=== PATIENT | male | born 1990 | race Two or more races ===

== ENCOUNTER 2025-02-28 16:38 | Emergency (ER) | payer MEDICAID, SELFPAY ==
[2025-02-28 16:46] VITALS: BP 124/83; PULSE 66; RESP 18; TEMP 36.7; O2SAT 96; BMI 23.6
--- NOTE | 2025-02-28 16:50 | XR_ITS ---
Examination: Wrist, left 3 views Technique: Wrist AP, oblique, lateral 3 views Date and time of exam: February 28, 2025 1705 hours INDICATIONS: Patient fell backwards today with injury to the wrist, wrist pain. FINDINGS: No acute wrist fracture No wrist dislocation No foreign body IMPRESSION: No acute wrist fracture. Please see the hand report
--- NOTE | 2025-02-28 16:50 | XR_ITS ---
Examination: Hand, left 3 views Technique: Hand AP, oblique, lateral 3 views Date and time of exam: February 28, 2025 1705 hours INDICATIONS: Patient fell today with injury to the hand, hand pain. FINDINGS: No acute fracture On the AP view minimal offset at the first metacarpophalangeal joint No fracture IMPRESSION: Suspicious for mild subluxation at the first metacarpophalangeal joint, the appearance should be clinically correlated
--- NOTE | 2025-02-28 17:53 | EDNOTE_ITS ---
Upper Extremity Injury RME/HPI General Chief Complaint: Hand/Wrist Problems Stated Complaint: Fall, left hand injury today Time Seen by Provider: 02/28/25 16:50 Arrival date/time: 02/28/25 16:38 34-year-old male with no significant medical problems presents to the emergency department today for complaints of pain to the left hand after a fall today patient reports pain is mostly over the left thumb at the base of the left thumb Limitations: no limitations Related Data Previous Rx's ?Medication ?Instructions ?Recorded naproxen 500 mg tablet (Naprosyn) 500 mg PO BID PRN pa in #30 tabs 01/06/22 albuterol sulfate 90 mcg/actuation 2 puff inhalation Q ID PRN 01/24/22 aerosol inhaler shortness of breath or wheez ing #8.5 grams azithromycin 250 mg tablet See Rx Instructions PO .COM PLEX #6 01/24/22 tabs hydrocodone 5 mg-acetaminophen 325 1 tab PO BID PRN pa in #10 tabs 05/27/22 mg tablet ibuprofen 600 mg tablet 600 mg PO Q8H PRN pain #20 t abs 05/27/22 pantoprazole 20 mg tablet,delayed 20 mg PO QDAY #20 ta bs 02/28/23 release (Protonix) cyclobenzaprine 10 mg tablet 10 mg PO BID #14 tabs meloxicam 7.5 mg tablet 7.5 mg PO QDAY #10 tabs 03/22 12/12 ibuprofen 600 mg tablet 600 mg PO QID PRN pain #20 t abs 07/24/23 albuterol sulfate 90 mcg/actuation 2 inh inhalation QI D PRN shortness 03/09/24 aerosol inhaler of breath or wheezing #8.5 g naveed acetaminophen 500 mg capsule 1,000 mg (2 x 500 mg) PO Q6H PRN 05/01/24 fever or pain #30 caps albuterol sulfate 90 mcg/actuation 2 puff inhalation Q 4H PRN 05/01/24 aerosol inhaler shortness of breath #8.5 gra ms ibuprofen 600 mg tablet 600 mg PO Q8H PRN fever or p ain 05/01/24 #30 tabs ibuprofen 600 mg tablet 600 mg PO Q6H #30 tabs 02/28 Allergies Allergy/AdvReac Type Severity Reaction Status Date / Time No Known Allergies Allergy Verified 02/28/25 16:42 Review of Systems Review of Systems Systems Reviewed: All systems reviewed, normal except as documented Constitutional Constitutional: Reports system reviewed and no additional complaints, except as documented, Denies fever(s) and Denies headache(s) Eyes Eyes: Reports system reviewed and no additional complaints, except as documented and Denies blurry vision ENT Ears, Nose, Mouth, and Throat: Reports system reviewed and no additional complaints, except as documented, Denies headache(s), Denies nasal congestion and Denies nasal discharge Cardiovascular Cardiovascular: Reports system reviewed and no additional complaints, except as documented, Denies chest pain and Denies dyspnea Respiratory Respiratory: Reports system reviewed and no additional complaints, except as documented, Denies chest congestion, Denies cough and Denies dyspnea Gastrointestinal Gastrointestinal: Reports system reviewed and no additional complaints, except as documented and Denies abdominal pain Musculoskeletal Musculoskeletal: Reports system reviewed and no additional complaints, except as documented, Reports arthralgias, Denies deformity and Denies joint swelling Integumentary/Breasts Skin/Breast: Reports system reviewed and no additional complaints, except as documented and Denies rash Neurologic Neurologic: Reports system reviewed and no additional complaints, except as d ocumented, Reports as per HPI and Denies headache(s) Past Medical History Past Medical History CARDIAC: Negative Congestive Heart Failure RESPIRATORY: Positive Asthma; Negative Chronic Obstructive Pulmonary Disease (COPD) GASTROINTESTINAL: Positive Hiatal Hernia GENITOURINARY: Negative Renal Disease or Kidney Stones ENDOCRINE: Negative Diabetes Mellitus Type 1 or Diabetes Mellitus Type 2 Surgical History SURGICAL: Positive Abdominal Surgery Social History SMOKING STATUS: Never smoker SUBSTANCE USE: does not use ED Exam General Limitations: Present no limitations General appearance: Present alert and in no apparent distress Head Head exam: Present atraumatic Eye Eye exam: Present normal appearance, PERRL and EOMI ENT ENT exam: Present normal exam, normal oropharynx and mucous membranes moist Neck Neck exam: Present normal inspection, full ROM and trachea midline Chest Chest inspection: Present normal inspection and symmetric chest wall rise Respiratory Respiratory exam: Present normal lung sounds bilaterally Cardiovascular Cardiovascular exam: Present regular rate, normal rhythm and normal heart sounds Abdominal Exam Abdominal exam: Present soft and normal bowel sounds Extremities Exam Extremities exam: Present tenderness, normal capillary refill and joint swelling Back Exam Back exam: Present normal inspection and full ROM Neurological Exam Neurological exam: Present alert, oriented X3 and CN II-XII intact Psychiatric Psychiatric exam: Present normal affect and normal mood Skin Skin exam: Present warm, dry, intact and normal color Course Quality Measures none Orders Category Date Time Status Splint / Immobilizer STAT Care 02/28/25 18:06 Completed XR hand comp LT min 3V Stat Exams 02/28/25 16:50 Completed XR wrist comp LT min 3V Stat Exams 02/28/25 16:50 Completed Vital Signs Vital signs: Vital Signs Temperature 98.0 F 02/28/25 16:46 Pulse Rate 66 02/28/25 16:46 Respiratory Rate 18 02/28/25 16:46 Blood Pressure 124/83 02/28/25 16:46 Pulse Oximetry (%) 96 02/28/25 16:46 Oxygen Delivery Method Room Air 02/28/25 16:46 O2 saturation 96% room air within normal limit PROCEDURES: Splint Fabrication: Clinician Made Type: Thumb Spica Reason for Splint: Optimal Positioning and Pain Management Circulation Distal to Splint: Yes Movement Distal to Splint: Yes Senation Distal to Splint: Yes Tolerance: Tolerates Well Extremity Injury MDM Narrative MDM Narrative:: 34-year-old male with no significant medical problems presents to the emergency department today for complaints of pain to the left hand after a fall today patient reports pain is mostly over the left thumb at the base of the left thumb On exam patient well-appearing patient does not appear ill or toxic in no acute distress Imaging obtained no acute emergent findings noted Patient placed in a thumb spica splint Patient instructed to follow-up with orthopedist for worsening symptoms return immediately Patient data External records reviewed:: [facility] previous records Clinical information provided by:: patient Social determinants that could affect healthcare access:: none Patient has the following chronic illnesses:: None How is presenting disease/condition affected by chronic disease/condition?: no chronic disease Evaluation data The following diagnostics were reviewed and interpreted by me:: radiology exam(s) Lab and/or radiology exams considered but not ordered:: Radiology obtain Interpretation Summary: Reviewed by me Medications / Prescriptions Medications or Prescriptions considered but not ordered:: Given Medication administrations:: Given Consultations Consultation(s) initiated? (list below): No Diagnosis Upper Extremity Injury Differential Diagnosis: finger sprain and fracture of hand Most likely diagnosis given after review of the tests above:: Finger sprain Admission Indicated Admission indicated?: not indicated Admission Request Was there a request for admission?: No Disposition Plan Disposition Plan: Discharge Discharge Attestation Discharge Attestation: The patient and all family members were given an opportunity to ask questions and understood the discharge instructions. Discharge instructions specifically effects, indications for sooner follow up or return to the emergency department, and the expected course of current diagnosis. Patient condition: Stable Discharge Plan Plan Patient Disposition: HOME (Self Care) Discharge Disposition comment: Stable Prescriptions/Referrals Prescriptions/Med Rec: New ibuprofen 600 mg tablet 600 mg PO Q6H Qty: 30 0RF No Action naproxen [Naprosyn] 500 mg tablet 500 mg PO BID PRN (Reason: pain) Qty: 30 0RF azithromycin 250 mg tablet See Rx Instructions .ROUTE .COMPLEX Qty: 6 0RF Rx Instructions: For 250 mg dose pack: take 500 mg today (day 1), then 250 mg for 4 days (days 2-5) albuterol sulfate 90 mcg/actuation HFA aerosol inhaler 2 puff inhalation QID PRN (Reason: shortness of breath or wheezing) Qty: 8.5 0RF meloxicam 7.5 mg tablet 7.5 mg PO QDAY Qty: 10 0RF cyclobenzaprine 10 mg tablet 10 mg PO BID Qty: 14 0RF hydrocodone-acetaminophen 5-325 mg tablet 1 tab PO BID MDD 10 PRN (Reason: pain) Qty: 10 0RF ibuprofen 600 mg tablet 600 mg PO Q8H PRN (Reason: pain) Qty: 20 0RF pantoprazole [Protonix] 20 mg tablet,delayed release (DR/EC) 20 mg PO QDAY Qty: 20 0RF ibuprofen 600 mg tablet 600 mg PO QID PRN (Reason: pain) Qty: 20 0RF albuterol sulfate 90 mcg/actuation HFA aerosol inhaler 2 inh inhalation QID PRN (Reason: shortness of breath or wheezing) Qty: 8.5 0RF acetaminophen 500 mg capsule 1,000 mg PO Q6H PRN (Reason: fever or pain) Qty: 30 0RF ibuprofen 600 mg tablet 600 mg PO Q8H PRN (Reason: fever or pain) Qty: 30 0RF albuterol sulfate 90 mcg/actuation HFA aerosol inhaler 2 puff INH Q4H PRN (Reason: shortness of breath) Qty: 8.5 0RF Referrals: No Primary/Family,Physician [Primary Care Provider] - In 1 week Problem List Clinical Impression: Injury of hand, left Patient/Caregiver Discharge Instructions Education Materials: ED VIKKI Wrap Additional Instructions: Please follow up with your primary care doctor in the next 24-48hrs for any worsening symptoms return here immediately If pain persist see your PCP for referral to orthopedic physician assistant Print Language: Spanish Stand Alone Forms: Katharine Award Info., Work/School Release, Patient Portal Info Letter PA/RETAIL SERVICES PROFESSIONAL Supervising Physician PA/RETAIL SERVICES PROFESSIONAL Supervising Physician: Dr cotton
== END 2025-02-28 18:16 | disposition home or self-care (01) ==
PROVIDERS: Emergency Provider Emergency Medicine
DX: S69.92XA Unspecified injury of left wrist, hand and finger(s), initial encounter (principal); W19.XXXA Unspecified fall, initial encounter
CPT/HCPCS: 73110; 73130; 99283

== ENCOUNTER 2025-07-21 22:30 | Emergency (ER) | payer SELFPAY ==
[2025-07-21 22:31] VITALS: BMI 23.6
[2025-07-21 22:57] VITALS: BP 144/80; PULSE 60; RESP 18; TEMP 36.7; O2SAT 96
--- NOTE | 2025-07-21 23:14 | XR_ITS ---
Examination: Duplex scan of the lower extremity, unilateral right Date and time of exam: July 21, 2025, 2300 hours INDICATIONS: Right hip and groin pain beginning 3 days ago Technique: Duplex scan of the extremity veins using B-mode/grayscale imaging and Doppler spectral analysis and color flow Attention is directed to internal echogenicity, compression and augmentation involving these veins, color flow assessment, spectral analysis Findings: Major deep venous structures in the extremity demonstrate normal course and caliber. There is no evidence of deep vein thrombosis. Normal color flow and spectral analysis 2.2 cm right groin lymph node Impression: Negative for DVT..
[2025-07-21 23:36] LABS: Collection Type, Urine Voided; Squamous Epithelial Cell,Urine 0 /hpf (0-5)
[2025-07-21 23:44] LABS: Basophils # (Auto) 0.0 Thou/mm3 (0.0-0.2); Basophils % (Auto) 0 % (0-2.5); Eosinophils # (Auto) 0.5 Thou/mm3 (0.0-0.5); Eosinophils % (Auto) 5 % (0-10); Hematocrit 39.8 % (41.0-53.0); Hemoglobin 13.4 g/dL (13.5-16.0); Immature Granulocytes Auto 0.04 Thou/mm3 (0.00-0.00); Lymphocytes # (Auto) 3.2 Thou/mm3 (1.0-4.8); Lymphocytes % (Auto) 39 % (10-50); Mean Corpuscular HGB Conc 33.7 g/dl (31.0-37.0); Mean Corpuscular Hemoglobin 30.0 pg (25.0-35.0); Mean Corpuscular Volume 89 fL (80-100); Monocytes # (Auto) 0.9 Thou/mm3 (0.0-0.8); Monocytes % (Auto) 10 % (0-12); Neutrophils # (Auto) 3.7 Thou/mm3 (1.8-7.7); Neutrophils % (Auto) 44 % (37-80); Nucleated Red Blood Cell # 0.00 Thou/mm3 (0.00-0.00); Nucleated Red Blood Cell % 0 /100 WBC (0); Platelet Count 244 Thou/mm3 (140-440); RDW Standard Deviation 42.5 fL (35.1-43.9); Red Blood Count 4.46 Miln/mm3 (4.50-5.90); White Blood Count 8.3 Thou/mm3 (3.8-10.6)
[2025-07-21 23:52] LABS: Amorphous Crystals,Urine Present (Absent); Bacteria,Urine Rare; Bilirubin,Urine Negative (Negative); Blood,Urine Trace (Negative); Clarity,Urine Clear (Clear/Hazy); Color,Urine Yellow (Lt Yel-Yel); Glucose, Urine Negative (Negative); Ketones,Urine Negative (Negative); Leukocyte Esterase,Urine Negative (Negative); Nitrite,Urine Negative (Negative); PH,Urine 5.5 (5.0-7.0); Protein,Urine Trace (Neg - Trace); RBC,Urine 5 /hpf (0-3); Specific Gravity,Urine 1.030 (1.001-1.035); Urobilinogen,Urine 2.0 mg/dL (0.0-1.0); WBC,Urine 2 /hpf (0-5)
[2025-07-21 23:56] LABS: Alanine Aminotransferase 12 U/L (10-49); Albumin, Serum 4.8 gm/dL (3.5-5.0); Albumin/Globulin Ratio 1.8 (1.2-2.2); Alkaline Phosphatase 73 U/L (46-116); Anion Gap 6 (7-16); Aspartate Amino Transferase 18 U/L (0-34); BUN/Creatinine Ratio 7 Ratio (12-20); Bilirubin,Total 0.3 mg/dL (0.3-1.2); Blood Urea Nitrogen 8 mg/dL (9-23); Calcium 9.2 mg/dL (8.3-10.6); Calcium (Corrected) 9.2 mg/dL (8.5-10.1); Carbon Dioxide 28.7 mMol/L (20.0-31.0); Chloride 107 mMol/L (98-107); Creatine Kinase 63 U/L (34-171); Creatinine (Component) 1.1 mg/dL (0.6-1.3); Estimated Creatinine Clearance 92.8 mL/min (>60); Globulin 2.6 gm/dL (2.3-3.5); Glucose 78 mg/dL (74-106); Osmolality,Calculated 280 (275-295); Potassium 3.8 mMol/L (3.4-5.1); Sodium 142 mMol/L (136-145); Total Protein 7.4 gm/dL (5.7-8.2); eGFR > 60 See Note
[2025-07-22 01:19] VITALS: BP 120/82; PULSE 67; RESP 16; TEMP 36.6; O2SAT 98
--- NOTE | 2025-07-22 01:34 | PRELIM_ITS ---
Right lower extremity venous Doppler ultrasound. July 21, 2025 at 2340 hours Clinical history: Pain. Rule out DVT. Technique: Duplex scan of the right lower extremity deep venous systems was performed utilizing 2D grayscale imaging, Doppler spectral analysis and color flow Doppler and with compression. No prior study is available for comparison. Findings: Terry scale, color flow and spectral Doppler evaluation of the right lower extremity deep veins were performed. The common femoral, superficial femoral and popliteal veins are patent and compressible. Normal respiratory variation is noted. There is no evidence of occlusive or nonocclusive thrombus. The great saphenous vein is patent and compressible at the level of the saphenofemoral junction. The calf veins to the extent visualized are patent. There is an enlarged inflamed appearing lymph node in the right proximal femoral vein region measuring up to 2 x 1.2 x 2.2 cm. Impression: No sonographic evidence of deep venous thrombosis in the right lower extremity. Enlarged inflamed appearing lymph node in the right proximal femoral vein region measuring up to 2 x 1.2 x 2.2 cm, recommend clinical correlation. Report Electronically Signed By: Jhonathan Kidd 07/22/2025 1:34:06 AM [EST]
[2025-07-22 02:52] VITALS: RESP 16
--- NOTE | 2025-07-22 05:23 | EDNOTE_ITS ---
ED Skin Abcess FB-RME/HPI General Chief complaint: Hip Injury/Pain Stated complaint: R HIP PAIN Time Seen by Provider: 07/21/25 23:13 Arrival date/time: 07/21/25 22:30 This is a case of 35-year-old male who came in in the emergency room due to pain on the right GROIN radiating to the right hip extending to the right anterior THIGH patient noted to have a 2 enlarged lymph node on the right groin patient denies any unprotected sex denies any penile discharge or penile lesion denies any urinary symptoms denies any injury or trauma Limitations: no limitations Related Data Previous Rx's ?Medication ?Instructions ?Recorded naproxen 500 mg tablet (Naprosyn) 500 mg PO BID PRN pa in #30 tabs 01/06/22 albuterol sulfate 90 mcg/actuation 2 puff inhalation Q ID PRN 01/24/22 aerosol inhaler shortness of breath or wheez ing #8.5 grams azithromycin 250 mg tablet See Rx Instructions PO .COM PLEX #6 01/24/22 tabs hydrocodone 5 mg-acetaminophen 325 1 tab PO BID PRN pa in #10 tabs 05/27/22 mg tablet ibuprofen 600 mg tablet 600 mg PO Q8H PRN pain #20 t abs 05/27/22 pantoprazole 20 mg tablet,delayed 20 mg PO QDAY #20 ta bs 02/28/23 release (Protonix) cyclobenzaprine 10 mg tablet 10 mg PO BID #14 tabs meloxicam 7.5 mg tablet 7.5 mg PO QDAY #10 tabs 03/22 12/12 ibuprofen 600 mg tablet 600 mg PO QID PRN pain #20 t abs 07/24/23 albuterol sulfate 90 mcg/actuation 2 inh inhalation QI D PRN shortness 03/09/24 aerosol inhaler of breath or wheezing #8.5 g naveed acetaminophen 500 mg capsule 1,000 mg (2 x 500 mg) PO Q6H PRN 05/01/24 fever or pain #30 caps albuterol sulfate 90 mcg/actuation 2 puff inhalation Q 4H PRN 05/01/24 aerosol inhaler shortness of breath #8.5 gra ms ibuprofen 600 mg tablet 600 mg PO Q8H PRN fever or p ain 05/01/24 #30 tabs ibuprofen 600 mg tablet 600 mg PO Q6H #30 tabs 02/28 cephalexin 500 mg capsule 500 mg PO QID #40 caps 07/22 ibuprofen 800 mg tablet 800 mg PO Q8H PRN pain #20 t abs 07/22/25 ondansetron 4 mg disintegrating 4 mg PO Q8H #20 tabs 1 09/22/24 tablet sulfamethoxazole 800 1 tab PO Q12H #20 tabs 07/22 mg-trimethoprim 160 mg tablet (Bactrim DS) Allergies Allergy/AdvReac Type Severity Reaction Status Date / Time No Known Allergies Allergy Verified 07/21/25 22:33 Review of Systems Review of Systems Systems Reviewed: All systems reviewed, normal except as documented Constitutional Constitutional: Reports system reviewed and no additional complaints, except as documented and Reports as per HPI Cardiovascular Cardiovascular: Reports system reviewed and no additional complaints, except as documented and Reports as per HPI Respiratory Respiratory: Reports system reviewed and no additional complaints, except as documented and Reports as per HPI Gastrointestinal Gastrointestinal: Reports system reviewed and no additional complaints, except as documented and Reports as per HPI Genitourinary Genitourinary: Reports system reviewed and no additional complaints, except as documented and Reports as per HPI Musculoskeletal Musculoskeletal: Reports system reviewed and no additional complaints, except as documented and Reports as per HPI Neurologic Neurologic: Reports system reviewed and no additional complaints, except as documented and Reports as per HPI Past Medical History Past Medical History CARDIAC: Negative Congestive Heart Failure RESPIRATORY: Positive Asthma; Negative Chronic Obstructive Pulmonary Disease (COPD) GASTROINTESTINAL: Positive Hiatal Hernia GENITOURINARY: Negative Renal Disease or Kidney Stones ENDOCRINE: Negative Diabetes Mellitus Type 1 or Diabetes Mellitus Type 2 Surgical History SURGICAL: Positive Abdominal Surgery Social History SMOKING STATUS: Never smoker SUBSTANCE USE: does not use ED Exam General Limitations: Present no limitations General appearance: Present alert, in no apparent distress and other (Patient is awake alert oriented not in distress nontoxic looking well-hydrated well- nourished) Head Head exam: Present atraumatic, normocephalic and normal inspection Eye Eye exam: Present normal appearance, PERRL and EOMI ENT ENT exam: Present normal exam, normal oropharynx and mucous membranes moist Neck Neck exam: Present normal inspection, full ROM and trachea midline; Absent tenderness, meningismus, lymphadenopathy or thyromegaly Chest Chest inspection: Present normal inspection and symmetric chest wall rise; Absent tenderness Respiratory Respiratory exam: Present normal lung sounds bilaterally; Absent respiratory distress, wheezes, stridor, accessory muscle use or prolonged expiratory phase Cardiovascular Cardiovascular exam: Present regular rate, normal rhythm and normal heart sounds; Absent bradycardia, tachycardia, irregular rhythm, systolic murmur or diastolic murmur Abdominal Exam Abdominal exam: Present soft and normal bowel sounds; Absent distention, tenderness, guarding, rebound, rigidity, diminished bowel sounds, hyperactive bowel sounds, hypoactive bowel sounds or organomegaly Extremities Exam Extremities exam: Present normal inspection and full ROM; Absent tenderness or normal capillary refill Expanded Lower Extremity Exam Hip/Pelvis exam: Present normal inspection, full ROM and pelvis stable; Absent tenderness, swelling, abrasion, laceration, ecchymosis, deformity, crepitus, dislocation, erythema, external rotation, internal rotation or shortening Upper leg exam: Present normal inspection and full ROM; Absent tenderness, swelling, abrasion, laceration, ecchymosis, deformity, crepitus, dislocation or erythema Back Exam Back exam: Present normal inspection and full ROM; Absent tenderness, CVA tenderness (R), CVA tenderness (L), muscle spasm, paraspinal tenderness, vertebral tenderness, rashes, sciatic notch tenderness (R), sciatic notch tenderness (L), straight leg raise (R) or straight leg raise (L) Neurological Exam Neurological exam: Present alert, oriented X3, CN II-XII intact, normal gait and reflexes normal; Absent motor sensory deficit Psychiatric Psychiatric exam: Present normal affect and normal mood Skin Skin exam: Present warm, dry, intact, normal color and other (Noted to lymphadenopathy on the right groin movable tender to touch with mild redness and swelling suggestive of possible abscess no [id number]) Course Quality Measures none Orders Category Date Time Status US venous doppler LE RT Stat Exams 07/21/25 23:14 Taken CBC Stat Lab 07/21/25 23:24 Completed CMP [Comprehensive Metabolic Panel] Stat Lab 07/21/25 23:24 Completed Creatine Kinase Stat Lab 07/21/25 23:24 Completed Urinalysis Stat Lab 07/21/25 23:24 Completed Vital Signs Vital signs: Vital Signs Temperature 98.1 F 07/21/25 22:57 Pulse Rate 60 07/21/25 22:57 Respiratory Rate 18 07/21/25 22:57 Blood Pressure 144/80 H 07/21/25 22:57 Pulse Oximetry (%) 96 11/30/25 22:57 Oxygen Delivery Method Room Air 07/21/25 22:57 Oxygen saturation is 96% in room air noRMAL Skin / Abscess / Foreign Body MDM Narrative MDM Narrative:: This is a case of 35-year-old male who came in in the emergency room due to pain on the right GROIN radiating to the right hip extending to the right anterior THIGH patient noted to have a 2 enlarged lymph node on the right groin patient denies any unprotected sex denies any penile discharge or penile lesion denies any urinary symptoms denies any injury or trauma physical examination patient is awake alert oriented not in distress nontoxic looking well-hydrated well noURISHED patient noted to have a enlarged lymph node in the right groin tender to touch movable no lesion noted genitourinary exam were normal no penile discharge no penile lesion chaperoned with the RN abdominal exam is benign nonsurgical no guarding no rebound no rigidity extremity exam is normal ultrasound of the right lower extremities were normal negative for DVT but with lymphadenopathy no leukocytosis no anemia kidney liver function is normal no e lectrolyte imbalance creatinine kinase is also normal at this point patient will be discharged with lymphadenopathy and possible abscess test patient was given discharged with cephalexin and Bactrim and ibuprofen for pain he was advised to follow-up with PCP in 2 days for reevaluation and worsening symptoms or any emergent concern return precaution in the ER is ADVSIED Patient data External records reviewed:: [facility] previous records Clinical information provided by:: patient Social determinants that could affect healthcare access:: none Patient has the following chronic illnesses:: None How is presenting disease/condition affected by chronic disease/condition?: no chronic disease Evaluation data The following diagnostics were reviewed and interpreted by me:: lab results and radiology exam(s) Lab and/or radiology exams considered but not ordered:: Reviewed Interpretation Summary: Reviewed Medications / Prescriptions Medications or Prescriptions considered but not ordered:: Given Medication administrations:: Given Consultations Consultation(s) initiated? (list below): No Diagnosis Skin/Abscess Differential Diagnosis: abscess of skin or subcutaneous tissue, cellulitis and other (Lymphadenopathy) Most likely diagnosis given after review of the tests above:: Lymphadenopathy skin abscess Admission Indicated Admission indicated?: not indicated Explain why admission is indicated or not indicated:: Not indicated Admission Request Was there a request for admission?: No Admission Attestation Admission request attestation: Not indicated Disposition Plan Disposition Plan: Discharge Discharge Attestation Discharge Attestation: The patient and all family members were given an opportunity to ask questions and understood the discharge instructions. Discharge instructions specifically effects, indications for sooner follow up or return to the emergency department, and the expected course of current diagnosis. Patient condition: Stable Discharge Plan Plan Patient Disposition: HOME (Self Care) Patient condition on transfer: Stable Prescriptions/Referrals Prescriptions/Med Rec: New cephalexin 500 mg capsule 500 mg PO QID Qty: 40 0RF sulfamethoxazole-trimethoprim [Bactrim DS] 800-160 mg tablet 1 tab PO Q12H Qty: 20 0RF ondansetron 4 mg tablet,disintegrating 4 mg PO Q8H Qty: 20 0RF ibuprofen 800 mg tablet 800 mg PO Q8H PRN (Reason: pain) Qty: 20 0RF No Action naproxen [Naprosyn] 500 mg tablet 500 mg PO BID PRN (Reason: pain) Qty: 30 0RF azithromycin 250 mg tablet See Rx Instructions .ROUTE .COMPLEX Qty: 6 0RF Rx Instructions: For 250 mg dose pack: take 500 mg today (day 1), then 250 mg for 4 days (days 2-5) albuterol sulfate 90 mcg/actuation HFA aerosol inhaler 2 puff inhalation QID PRN (Reason: shortness of breath or wheezing) Qty: 8.5 0RF meloxicam 7.5 mg tablet 7.5 mg PO QDAY Qty: 10 0RF cyclobenzaprine 10 mg tablet 10 mg PO BID Qty: 14 0RF hydrocodone-acetaminophen 5-325 mg tablet 1 tab PO BID MDD 10 PRN (Reason: pain) Qty: 10 0RF ibuprofen 600 mg tablet 600 mg PO Q8H PRN (Reason: pain) Qty: 20 0RF pantoprazole [Protonix] 20 mg tablet,delayed release (DR/EC) 20 mg PO QDAY Qty: 20 0RF ibuprofen 600 mg tablet 600 mg PO QID PRN (Reason: pain) Qty: 20 0RF albuterol sulfate 90 mcg/actuation HFA aerosol inhaler 2 inh inhalation QID PRN (Reason: shortness of breath or wheezing) Qty: 8.5 0RF acetaminophen 500 mg capsule 1,000 mg PO Q6H PRN (Reason: fever or pain) Qty: 30 0RF ibuprofen 600 mg tablet 600 mg PO Q8H PRN (Reason: fever or pain) Qty: 30 0RF albuterol sulfate 90 mcg/actuation HFA aerosol inhaler 2 puff INH Q4H PRN (Reason: shortness of breath) Qty: 8.5 0RF ibuprofen 600 mg tablet 600 mg PO Q6H Qty: 30 0RF Referrals: No Primary/Family,Physician [Primary Care Provider] - In 1 week Problem List Clinical Impression: Hip pain, right, Lymphadenopathy, Cutaneous abscess Patient/Caregiver Discharge Instructions Education Materials: Lymphadenopathy, ED Abscess Antibiotic ..., ED Hip Strain, ED RICE Additional Instructions: Follow-up with your primary care physician in 2 days for reevaluation and to be referred to urologist for further evaluation and treatment of lymphadenopathy on the right inguinal return in the emergency room in 2 days for evaluation of possible abscess and possible incision and drainage worsening symptoms or any emergent concern call 911 or go to the nearest emergency room take your medication as directed finish the course of antibiotic increase water intake keep hydrated Print Language: Moz[place]ican Stand Alone Forms: [employer] Award Info., Patient Portal Info Letter PA/REFRACTORY FURNACE DESIGNER Supervising Physician PA/REFRACTORY FURNACE DESIGNER Supervising Physician: dR BURT WESLEY
== END 2025-07-22 02:52 | disposition home or self-care (01) ==
PROVIDERS: Nurse Practitioner Family; Emergency Provider Emergency Medicine
DX: L02.415 Cutaneous abscess of right lower limb (principal); R59.0 Localized enlarged lymph nodes
CPT/HCPCS: 36415; 80053; 81001; 82550; 85025; 93971; 99283